=== PATIENT | male | born 1990 | race Caucasian/White ===

== ENCOUNTER 2021-03-04 17:28 | Inpatient (IN) | payer OTHER ==
[2021-03-04] MEDS ORDERED: BISMUTH SUBSALICYLATE 524 MG/30 ML UD PO PRN (19:10)
[2021-03-04] MEDS ORDERED: MENTHOL/PHENOL 1 EACH UD MM PRN (19:10)
[2021-03-04] MEDS ORDERED: ACETAMINOPHEN 325 MG TABLET (FP) PO PRN ×2 (19:10)
[2021-03-04] MEDS ORDERED: MAGNESIUM HYDROX 2400MG/30ML ORAL SUSPENSION 30 ML CUP PO PRN (19:10)
[2021-03-04] MEDS ORDERED: MAGNESIUM CITRATE 300 ML BOTTLE PO PRN (19:10)
[2021-03-04] MEDS ORDERED: IBUPROFEN 400 MG TABLET (FP) PO PRN (19:10)
[2021-03-04] MEDS ORDERED: ONDANSETRON *ODT* 4 MG TABLET SL PRN (19:10)
[2021-03-04] MEDS ORDERED: MAG HYDROX/AL HYDROX/SIMETH 30 ML UNIT-DOSE CUP PO PRN (19:10)
[2021-03-04 20:14] VITALS: BMI 21.4
[2021-03-04] MEDS ORDERED: METHADONE HCL 10 MG TABLET (FOR DETOX USE ONLY) PO ONE (20:15)
[2021-03-04] MEDS: THIAMINE HCL 100 MG TABLET (FP) PO SCH (21:20)
[2021-03-04] MEDS: MELATONIN 5 MG TABLETS PO SCH (21:20)
[2021-03-05] MEDS ORDERED: METHADONE HCL 5 MG TABLET (FOR DETOX USE ONLY) ONE (09:26)
[2021-03-05] MEDS ORDERED: METHADONE HCL 10 MG TABLET (FOR DETOX USE ONLY) ONE (09:26)
[2021-03-05 09:52] LABS: HEMATOCRIT 39.1 % (35.4-49); HEMOGLOBIN 13.2 GM/dL (11.7-16.9); MCH 31.3 pg (25.7-33.7); MCHC 33.9 g/dl (32.0-35.9); MEAN CELL VOLUME 92.5 fl (80-96); MEAN PLT VOLUME 9.6 fl (7.5-11.1); PLATELET COUNT 246 K/MM3 (134-434); RBC 4.23 M/mm3 (4.00-5.60); RDW 13.3 % (11.9-15.9); WHITE BLOOD COUNT 14.5 K/mm3 (4.0-10.0)
[2021-03-05] MEDS ORDERED: METHADONE (DETOX) 20 MG, METHADONE (DETOX) 5 MG PO ONE (10:00)
[2021-03-05 10:23] LABS: BLOOD UREA NITROGEN 17.6 mg/dL (7-18)
[2021-03-05 10:27] LABS: BILIRUBIN,TOTAL 0.4 mg/dL (0.2-1)
[2021-03-05] MEDS: NICOTINE 14 MG/24 HOURS TOPICAL PATCH TD SCH (10:27)
[2021-03-05] MEDS: PRENATAL VITAMINS W/ FOLIC ACID TABLET (FP) PO SCH (10:27)
[2021-03-05 10:28] LABS: TOT PROT 7.5 g/dl (6.4-8.2)
[2021-03-05] MEDS: NICOTINE POLACRILEX 2 MG GUM BUC PRN ×3 (12:15→19:08)
[2021-03-05] MEDS: METHOCARBAMOL 500 MG TABLET PO PRN (19:08)
[2021-03-05] MEDS: MELATONIN 5 MG TABLETS PO SCH (22:22)
[2021-03-05] MEDS: THIAMINE HCL 100 MG TABLET (FP) PO SCH (22:22)
[2021-03-05] MEDS: hydrOXYzine PAMOATE 25 MG CAPSULE (FP) PO PRN (22:22)
[2021-03-05] MEDS: cloNIDine HCL 0.1 MG TABLET PO PRN (22:22)
[2021-03-06] MEDS ORDERED: METHADONE HCL 10 MG TABLET (FOR DETOX USE ONLY) PO ONE (10:00)
[2021-03-06] MEDS: PRENATAL VITAMINS W/ FOLIC ACID TABLET (FP) PO SCH (10:33)
[2021-03-06] MEDS: hydrOXYzine PAMOATE 25 MG CAPSULE (FP) PO PRN ×2 (10:34→22:16)
[2021-03-06] MEDS: NICOTINE 14 MG/24 HOURS TOPICAL PATCH TD SCH (10:34)
[2021-03-06] MEDS: METHOCARBAMOL 500 MG TABLET PO PRN ×2 (10:35→22:16)
[2021-03-06] MEDS: cloNIDine HCL 0.1 MG TABLET PO PRN (12:34)
[2021-03-06] MEDS: NICOTINE POLACRILEX 2 MG GUM BUC PRN (12:35)
[2021-03-06] MEDS: THIAMINE HCL 100 MG TABLET (FP) PO SCH (22:16)
[2021-03-06] MEDS: MELATONIN 5 MG TABLETS PO SCH (22:17)
[2021-03-07] MEDS ORDERED: METHADONE HCL 5 MG TABLET (FOR DETOX USE ONLY) ONE (08:58)
[2021-03-07] MEDS ORDERED: METHADONE HCL 10 MG TABLET (FOR DETOX USE ONLY) ONE (08:58)
[2021-03-07] MEDS ORDERED: METHADONE (DETOX) 10 MG, METHADONE (DETOX) 5 MG PO ONE (10:00)
[2021-03-07] MEDS: NICOTINE 14 MG/24 HOURS TOPICAL PATCH TD SCH (10:24)
[2021-03-07] MEDS: METHOCARBAMOL 500 MG TABLET PO PRN (10:24)
[2021-03-07] MEDS: PRENATAL VITAMINS W/ FOLIC ACID TABLET (FP) PO SCH (10:24)
[2021-03-07 10:40] LABS: BASO % 0.5 % (0-2.0); EOS % 1.2 % (0-4.5); HEMOGLOBIN 13.7 GM/dL (11.7-16.9); MCH 31.7 pg (25.7-33.7); MCHC 34.2 g/dl (32.0-35.9); MEAN CELL VOLUME 92.7 fl (80-96); MEAN PLT VOLUME 9.3 fl (7.5-11.1); MONO % 4.7 % (3.8-10.2); NEUT % 71.6 % (42.8-82.8); PLATELET COUNT 255 K/MM3 (134-434); RBC 4.31 M/mm3 (4.00-5.60); RDW 13.2 % (11.9-15.9)
[2021-03-07] MEDS: hydrOXYzine PAMOATE 25 MG CAPSULE (FP) PO PRN (12:30)
[2021-03-07] MEDS: NICOTINE POLACRILEX 2 MG GUM BUC PRN ×2 (12:31→15:23)
[2021-03-07 13:31] VITALS: BP 135/66; PULSE 83; TEMP 98.2
[2021-03-08 06:07] LABS: SARS-CoV-2 NAA Not Detected (Not Detected)
[2021-03-08] MEDS ORDERED: METHADONE HCL 10 MG TABLET (FOR DETOX USE ONLY) PO ONE (10:00)
[2021-03-09] MEDS ORDERED: METHADONE HCL 5 MG TABLET (FOR DETOX USE ONLY) PO ONE (06:00)
== END 2021-03-07 18:10 | disposition left against medical advice (07) | DRG 770 ==
LOC: YASAS 17:28 → Y6N 20:13
PROVIDERS: ADMIT Allergy & Immunology; ATTEND Allergy & Immunology
PROC: HZ2ZZZZ Detoxification Services for Substance Abuse Treatment (ICD-10-PCS; principal; 2021-03-04)
DX: F11.23 Opioid dependence with withdrawal (principal); F14.10 Cocaine abuse, uncomplicated; D72.829 Elevated white blood cell count, unspecified
CPT/HCPCS: 36415; 80053; 85025; 85027; 86780; 93005; 93010; C9803; J0735; U0003; U0005

== ENCOUNTER 2021-10-18 01:53 | Inpatient (IN) | payer OTHER ==
[2021-10-18 02:44] VITALS: BMI 21.7
[2021-10-18] MEDS ORDERED: MAG HYDROX/AL HYDROX/SIMETH 30 ML UNIT-DOSE CUP PO PRN (02:51)
[2021-10-18] MEDS ORDERED: BISMUTH SUBSALICYLATE 524 MG/30 ML PO PRN (02:51)
[2021-10-18] MEDS ORDERED: ACETAMINOPHEN 325 MG TABLET (FP) PO PRN ×2 (02:51)
[2021-10-18] MEDS ORDERED: ONDANSETRON *ODT* 4 MG TABLET SL PRN (02:51)
[2021-10-18] MEDS ORDERED: MAGNESIUM CITRATE 300 ML BOTTLE PO PRN (02:51)
[2021-10-18] MEDS ORDERED: MENTHOL/PHENOL 1 EACH UD MM PRN (02:51)
[2021-10-18] MEDS ORDERED: MAGNESIUM HYDROX 2400MG/30ML ORAL SUSPENSION 30 ML CUP PO PRN (02:51)
[2021-10-18] MEDS ORDERED: IBUPROFEN 400 MG TABLET (FP) PO PRN (02:51)
[2021-10-18] MEDS ORDERED: methaDONE HCL 10 MG TABLET (FOR DETOX USE ONLY) PO ONE (02:56)
[2021-10-18] MEDS ORDERED: methaDONE HCL 10 MG TABLET (FOR DETOX USE ONLY) ONE (04:20)
[2021-10-18] MEDS: NICOTINE 21 MG/24 HOURS TOPICAL PATCH TD SCH (11:41)
[2021-10-18] MEDS: PRENATAL VITAMINS W/ FOLIC ACID TABLET (FP) PO SCH (11:42)
[2021-10-18] MEDS: NICOTINE POLACRILEX 2 MG GUM BUC PRN (13:35)
[2021-10-18] MEDS: THIAMINE HCL 100 MG TABLET (FP) PO SCH (23:20)
[2021-10-18] MEDS: MELATONIN 5 MG TABLETS PO SCH (23:20)
[2021-10-18] MEDS: METHOCARBAMOL 500 MG TABLET PO PRN (23:20)
[2021-10-19] MEDS ORDERED: methaDONE HCL 10 MG TABLET (FOR DETOX USE ONLY) ONE (09:31)
[2021-10-19] MEDS: PRENATAL VITAMINS W/ FOLIC ACID TABLET (FP) PO SCH (09:54)
[2021-10-19] MEDS: NICOTINE 21 MG/24 HOURS TOPICAL PATCH TD SCH (09:54)
[2021-10-19] MEDS: METHOCARBAMOL 500 MG TABLET PO PRN ×2 (09:54→22:18)
[2021-10-19 10:36] LABS: HEMATOCRIT 37.9 % (35.4-49); HEMOGLOBIN 12.8 GM/dL (11.7-16.9); MCH 30.8 pg (25.7-33.7); MCHC 33.7 g/dl (32.0-35.9); MEAN CELL VOLUME 91.4 fl (80-96); MEAN PLT VOLUME 9.4 fl (7.5-11.1); PLATELET COUNT 240 10^3/uL (134-434); RBC 4.15 M/mm3 (4.00-5.60); RDW 13.9 % (11.9-15.9); WHITE BLOOD COUNT 8.4 K/mm3 (4.0-10.0)
[2021-10-19 10:48] LABS: ALBUMIN 3.4 g/dl (3.4-5.0); BLOOD UREA NITROGEN 17.3 mg/dL (7-18); CALCIUM 9.2 mg/dL (8.5-10.1)
[2021-10-19 10:50] LABS: BILIRUBIN,TOTAL 0.2 mg/dL (0.2-1); TOT PROT 6.9 g/dl (6.4-8.2)
[2021-10-19] MEDS: cloNIDine HCL 0.1 MG TABLET PO PRN (22:18)
[2021-10-19] MEDS: THIAMINE HCL 100 MG TABLET (FP) PO SCH (22:18)
[2021-10-19] MEDS: MELATONIN 5 MG TABLETS PO SCH (22:18)
[2021-10-20] MEDS: NICOTINE POLACRILEX 2 MG GUM BUC PRN ×3 (07:35→14:17)
[2021-10-20] MEDS ORDERED: methaDONE HCL 10 MG TABLET (FOR DETOX USE ONLY) PO ONE (10:00)
[2021-10-20] MEDS: NICOTINE 21 MG/24 HOURS TOPICAL PATCH TD SCH (10:16)
[2021-10-20] MEDS: PRENATAL VITAMINS W/ FOLIC ACID TABLET (FP) PO SCH (10:18)
[2021-10-20] MEDS: METHOCARBAMOL 500 MG TABLET PO PRN (22:59)
[2021-10-20] MEDS: THIAMINE HCL 100 MG TABLET (FP) PO SCH (22:59)
[2021-10-20] MEDS: cloNIDine HCL 0.1 MG TABLET PO PRN (23:00)
[2021-10-20] MEDS: MELATONIN 5 MG TABLETS PO SCH (23:01)
[2021-10-21] MEDS ORDERED: methaDONE HCL 10 MG TABLET (FOR DETOX USE ONLY) ONE (09:23)
[2021-10-21] MEDS: METHOCARBAMOL 500 MG TABLET PO PRN (10:05)
[2021-10-21] MEDS: PRENATAL VITAMINS W/ FOLIC ACID TABLET (FP) PO SCH (10:05)
[2021-10-21] MEDS: NICOTINE 21 MG/24 HOURS TOPICAL PATCH TD SCH (10:06)
[2021-10-21] MEDS: hydrOXYzine PAMOATE 25 MG CAPSULE (FP) PO PRN ×3 (11:57→22:05)
[2021-10-21] MEDS: NICOTINE POLACRILEX 2 MG GUM BUC PRN (11:58)
[2021-10-21] MEDS ORDERED: SUVOREXANT 10 MG TABLET PO PRN (22:00)
[2021-10-21] MEDS: THIAMINE HCL 100 MG TABLET (FP) PO SCH (22:05)
[2021-10-22] MEDS ORDERED: methaDONE HCL 10 MG TABLET (FOR DETOX USE ONLY) PO ONE (10:00)
[2021-10-22] MEDS: PRENATAL VITAMINS W/ FOLIC ACID TABLET (FP) PO SCH (10:08)
[2021-10-22] MEDS: METHOCARBAMOL 500 MG TABLET PO PRN ×2 (10:08→17:39)
[2021-10-22] MEDS: NICOTINE POLACRILEX 2 MG GUM BUC PRN (10:10)
[2021-10-22] MEDS: NICOTINE 21 MG/24 HOURS TOPICAL PATCH TD SCH (10:10)
[2021-10-22] MEDS: hydrOXYzine PAMOATE 25 MG CAPSULE (FP) PO PRN (10:11)
[2021-10-22] MEDS: NICOTINE 10 MG CARTRIDGE (INHALER) IH PRN ×2 (10:46→17:41)
[2021-10-22] MEDS: hydrOXYzine PAMOATE 50 MG CAPSULE (FP) PO PRN ×2 (14:22→22:17)
[2021-10-22] MEDS ORDERED: SUVOREXANT 15 MG TABLET PO PRN (22:00)
[2021-10-22] MEDS: THIAMINE HCL 100 MG TABLET (FP) PO SCH (22:18)
[2021-10-23 09:19] VITALS: BP 112/53; PULSE 107; TEMP 98.1
[2021-10-23] MEDS: PRENATAL VITAMINS W/ FOLIC ACID TABLET (FP) PO SCH (10:18)
[2021-10-23] MEDS: METHOCARBAMOL 500 MG TABLET PO PRN (10:18)
[2021-10-23] MEDS: NICOTINE 21 MG/24 HOURS TOPICAL PATCH TD SCH (10:19)
[2021-10-23] MEDS: hydrOXYzine PAMOATE 50 MG CAPSULE (FP) PO PRN (10:19)
[2021-10-23] MEDS: NICOTINE 10 MG CARTRIDGE (INHALER) IH PRN (10:20)
== END 2021-10-23 11:55 | disposition other institution (70) | DRG 773 ==
LOC: YASAS 01:53 → Y6N 10:14
PROVIDERS: ADMIT Allergy & Immunology; ATTEND Allergy & Immunology
PROC: HZ2ZZZZ Detoxification Services for Substance Abuse Treatment (ICD-10-PCS; principal; 2021-10-18)
DX: F11.23 Opioid dependence with withdrawal (principal); F14.20 Cocaine dependence, uncomplicated; F17.210 Nicotine dependence, cigarettes, uncomplicated; F19.282 Other psychoactive substance dependence with psychoactive substance-induced sleep disorder; F19.280 Other psychoactive substance dependence with psychoactive substance-induced anxiety disorder; R73.09 Other abnormal glucose
CPT/HCPCS: 36415; 80053; 82962; 85027; 86780; 93005; 93010; C9803; J0735; U0003; U0005

== ENCOUNTER 2021-10-23 11:30 | Inpatient (IN) | payer OTHER ==
[2021-10-23 12:17] VITALS: BP 127/75; PULSE 95; TEMP 98.6
[2021-10-23] MEDS ORDERED: MAG HYDROX/AL HYDROX/SIMETH 30 ML UNIT-DOSE CUP PO PRN (12:18)
[2021-10-23] MEDS ORDERED: NICOTINE 10 MG CARTRIDGE (INHALER) IH PRN (12:18)
[2021-10-23] MEDS ORDERED: guaiFENesin 200 MG/10 ML 10 ML UNIT-DOSE CUPS PO PRN (12:18)
[2021-10-23] MEDS ORDERED: MAGNESIUM CITRATE 300 ML BOTTLE PO PRN (12:18)
[2021-10-23] MEDS ORDERED: ACETAMINOPHEN 325 MG TABLET (FP) PO PRN (12:18)
[2021-10-23] MEDS ORDERED: P-EPHED 60MG/TRIPROLIDI 2.5MG TABLET PO PRN (12:18)
[2021-10-23] MEDS ORDERED: IBUPROFEN 400 MG TABLET (FP) PO PRN (12:18)
[2021-10-23] MEDS ORDERED: MAGNESIUM HYDROX 2400MG/30ML ORAL SUSPENSION 30 ML CUP PO PRN (12:18)
[2021-10-23] MEDS ORDERED: LOPERAMIDE HCL 2 MG CAPSULE PO PRN (12:18)
[2021-10-23] MEDS ORDERED: NICOTINE POLACRILEX 2 MG GUM BUC PRN (12:21)
[2021-10-23] MEDS ORDERED: hydrOXYzine PAMOATE 25 MG CAPSULE (FP) PO PRN (13:09)
[2021-10-23] MEDS ORDERED: METHOCARBAMOL 500 MG TABLET PO PRN (13:09)
[2021-10-23] MEDS ORDERED: hydrOXYzine PAMOATE 50 MG CAPSULE (FP) PO PRN (13:48)
[2021-10-23] MEDS ORDERED: hydrOXYzine PAMOATE 25 MG CAPSULE (FP) PO SCH (14:00)
[2021-10-23] MEDS ORDERED: GABAPENTIN 100 MG CAPSULE PO SCH (14:45)
[2021-10-23] MEDS ORDERED: MELATONIN 5 MG TABLETS PO SCH (22:00)
[2021-10-23] MEDS ORDERED: THIAMINE HCL 100 MG TABLET (FP) PO SCH (22:00)
[2021-10-23] MEDS ORDERED: SUVOREXANT 15 MG TABLET PO PRN (22:00)
[2021-10-24] MEDS ORDERED: NICOTINE 7 MG/24 HOURS TOPICAL PATCH TD SCH ×2 (10:00)
[2021-10-24] MEDS ORDERED: NICOTINE 21 MG/24 HOURS TOPICAL PATCH TD SCH (10:00)
[2021-10-24] MEDS ORDERED: PRENATAL VITAMINS W/ FOLIC ACID TABLET (FP) PO SCH (10:00)
[2021-10-24] MEDS ORDERED: FLU VACC QS2021-22(6MOS UP)/PF 60 MCG/0.5 ML SYRINGE IM ONE (12:00)
== END 2021-10-23 17:05 | disposition left against medical advice (07) | DRG 770 ==
LOC: YASAS 11:30 → Y3W 11:31
PROVIDERS: ADMIT Allergy & Immunology; ATTEND Allergy & Immunology
PROC: HZ42ZZZ Group Counseling for Substance Abuse Treatment, Cognitive-Behavioral (ICD-10-PCS; principal; 2021-10-23)
DX: F11.20 Opioid dependence, uncomplicated (principal); F14.20 Cocaine dependence, uncomplicated; F17.210 Nicotine dependence, cigarettes, uncomplicated; F19.282 Other psychoactive substance dependence with psychoactive substance-induced sleep disorder; F19.280 Other psychoactive substance dependence with psychoactive substance-induced anxiety disorder; F41.9 Anxiety disorder, unspecified; F32.A Depression, unspecified

== ENCOUNTER 2021-11-13 11:33 | Inpatient (IN) | payer OTHER ==
[2021-11-13] MEDS ORDERED: MAG HYDROX/AL HYDROX/SIMETH 30 ML UNIT-DOSE CUP PO PRN (13:18)
[2021-11-13] MEDS ORDERED: IBUPROFEN 400 MG TABLET (FP) PO PRN (13:18)
[2021-11-13] MEDS ORDERED: MENTHOL/PHENOL 1 EACH UD MM PRN (13:18)
[2021-11-13] MEDS ORDERED: MAGNESIUM HYDROX 2400MG/30ML ORAL SUSPENSION 30 ML CUP PO PRN (13:18)
[2021-11-13] MEDS ORDERED: ACETAMINOPHEN 325 MG TABLET (FP) PO PRN ×2 (13:18)
[2021-11-13] MEDS ORDERED: BISMUTH SUBSALICYLATE 262 MG/15 ML BTL PO PRN (13:18)
[2021-11-13] MEDS ORDERED: ONDANSETRON *ODT* 4 MG TABLET SL PRN (13:18)
[2021-11-13] MEDS ORDERED: MAGNESIUM CITRATE 300 ML BOTTLE PO PRN (13:18)
[2021-11-13 13:42] VITALS: BMI 22.1
[2021-11-13] MEDS: hydrOXYzine PAMOATE 25 MG CAPSULE (FP) PO SCH ×3 (15:14→22:05)
[2021-11-13] MEDS: NICOTINE 21 MG/24 HOURS TOPICAL PATCH TD SCH (15:14)
[2021-11-13] MEDS: PRENATAL VITAMINS W/ FOLIC ACID TABLET (FP) PO SCH (15:15)
[2021-11-13] MEDS: METHOCARBAMOL 500 MG TABLET PO PRN ×2 (15:59→22:06)
[2021-11-13] MEDS ORDERED: cloNIDine HCL 0.1 MG TABLET PO PRN (16:59)
[2021-11-13] MEDS ORDERED: methaDONE HCL 10 MG TABLET (FOR DETOX USE ONLY) PO ONE (16:59)
[2021-11-13 17:16] LABS: HEMATOCRIT 40.5 % (35.4-49); HEMOGLOBIN 13.2 GM/dL (11.7-16.9); MCH 29.6 pg (25.7-33.7); MCHC 32.7 g/dl (32.0-35.9); MEAN CELL VOLUME 90.6 fl (80-96); MEAN PLT VOLUME 9.1 fl (7.5-11.1); PLATELET COUNT 314 10^3/uL (134-434); RBC 4.47 M/mm3 (4.00-5.60); RDW 13.9 % (11.9-15.9); WHITE BLOOD COUNT 8.6 K/mm3 (4.0-10.0)
[2021-11-13 17:18] LABS: CALCIUM 9.6 mg/dL (8.5-10.1)
[2021-11-13 17:22] LABS: TOT PROT 7.6 g/dl (6.4-8.2)
[2021-11-13 17:24] LABS: BILIRUBIN,TOTAL 0.3 mg/dL (0.2-1)
[2021-11-13] MEDS: NICOTINE 10 MG CARTRIDGE (INHALER) IH PRN (17:29)
[2021-11-13] MEDS: THIAMINE HCL 100 MG TABLET (FP) PO SCH (22:05)
[2021-11-13] MEDS: MELATONIN 5 MG TABLETS PO SCH (22:06)
[2021-11-14] MEDS: hydrOXYzine PAMOATE 25 MG CAPSULE (FP) PO SCH ×2 (06:14→10:06)
[2021-11-14] MEDS: NICOTINE 21 MG/24 HOURS TOPICAL PATCH TD SCH (10:03)
[2021-11-14] MEDS: PRENATAL VITAMINS W/ FOLIC ACID TABLET (FP) PO SCH (10:04)
[2021-11-14] MEDS: METHOCARBAMOL 500 MG TABLET PO PRN ×2 (10:06→19:14)
[2021-11-14] MEDS: diazePAM 5 MG TABLET PO PRN ×3 (10:45→19:14)
[2021-11-14] MEDS ORDERED: GABAPENTIN 100 MG CAPSULE PO SCH (14:00)
[2021-11-14] MEDS: GABAPENTIN 100 MG CAPSULE PO SCH ×2 (14:35→22:34)
[2021-11-14] MEDS ORDERED: SUVOREXANT 10 MG TABLET PO PRN (22:00)
[2021-11-14] MEDS: MELATONIN 5 MG TABLETS PO SCH (22:34)
[2021-11-14] MEDS: THIAMINE HCL 100 MG TABLET (FP) PO SCH (22:34)
[2021-11-15] MEDS: diazePAM 5 MG TABLET PO PRN ×5 (03:04→20:42)
[2021-11-15] MEDS: GABAPENTIN 100 MG CAPSULE PO SCH ×3 (06:27→22:14)
[2021-11-15] MEDS: NICOTINE 10 MG CARTRIDGE (INHALER) IH PRN (08:50)
[2021-11-15] MEDS ORDERED: methaDONE HCL 10 MG TABLET (FOR DETOX USE ONLY) PO ONE (10:00)
[2021-11-15] MEDS: NICOTINE 21 MG/24 HOURS TOPICAL PATCH TD SCH (10:26)
[2021-11-15] MEDS: PRENATAL VITAMINS W/ FOLIC ACID TABLET (FP) PO SCH (10:26)
[2021-11-15] MEDS: METHOCARBAMOL 500 MG TABLET PO PRN ×2 (10:26→23:06)
[2021-11-15] MEDS: MELATONIN 5 MG TABLETS PO SCH (22:13)
[2021-11-15] MEDS: THIAMINE HCL 100 MG TABLET (FP) PO SCH (22:14)
[2021-11-16] MEDS: diazePAM 5 MG TABLET PO PRN ×3 (02:37→11:47)
[2021-11-16] MEDS: GABAPENTIN 100 MG CAPSULE PO SCH ×2 (07:44→13:16)
[2021-11-16 10:01] VITALS: BP 119/70; PULSE 89; TEMP 96.9
[2021-11-16] MEDS: NICOTINE 21 MG/24 HOURS TOPICAL PATCH TD SCH (10:16)
[2021-11-16] MEDS: PRENATAL VITAMINS W/ FOLIC ACID TABLET (FP) PO SCH (10:17)
== END 2021-11-16 13:30 | disposition home or self-care (01) | DRG 773 ==
LOC: YASAS 11:33 → Y3N 14:04
PROVIDERS: ADMIT Allergy & Immunology; ATTEND Allergy & Immunology
PROC: HZ2ZZZZ Detoxification Services for Substance Abuse Treatment (ICD-10-PCS; principal; 2021-11-13)
DX: F11.23 Opioid dependence with withdrawal (principal); F12.10 Cannabis abuse, uncomplicated; F17.210 Nicotine dependence, cigarettes, uncomplicated; F19.282 Other psychoactive substance dependence with psychoactive substance-induced sleep disorder; F19.280 Other psychoactive substance dependence with psychoactive substance-induced anxiety disorder; F19.24 Other psychoactive substance dependence with psychoactive substance-induced mood disorder; F39 Unspecified mood [affective] disorder; F41.9 Anxiety disorder, unspecified
CPT/HCPCS: 36415; 80053; 85027; 86780; C9803; J0735; U0003; U0005